=== PATIENT | male | born 1965 | race Caucasian/White ===

== ENCOUNTER 2024-10-28 08:26 | Outpatient (RCR) | payer OTHER, SELFPAY ==
[2024-10-28] VITALS (8 sets, daily range): BP systolic 86–112; BP diastolic 57–71; PULSE 79–81; RESP 15–18; TEMP 36.3–37.3; O2SAT 98–100
[2024-10-28] MEDS: 0.9 % SODIUM CHLORIDE 500 ML 250 ML IV (11:30)
[2024-10-28] MEDS: SODIUM CHLORIDE 0.9 % (FLUSH) 10 ML SYRINGE IVF (11:30)
== END 2025-04-26 23:59 | disposition home or self-care (01) ==
LOC: CCIC 08:26
PROVIDERS: PCP Family Medicine; Visit Provider Clinical Nurse Specialist
DX: D64.9 Anemia, unspecified (principal); C06.9 Malignant neoplasm of mouth, unspecified
CPT/HCPCS: 36415; 36430; 86850; 86900; 86901; 86922; J7030; P9016